=== PATIENT | male | born 1955 | race Hispanic/Latino ===

== ENCOUNTER 2019-11-27 00:48 | Emergency (ER) | payer SELFPAY ==
[~2019-11-27] VITALS: Ht 180.3 cm; Wt 108.9 kg
[2019-11-27] MEDS ORDERED: AZITHROMYCIN 250 MG TAB PO ONE (02:00)
[2019-11-27] MEDS ORDERED: PREDNISONE 20 MG TAB PO ONE (02:00)
[2019-11-27] MEDS ORDERED: CEFTRIAXONE SOD 1 GM VIAL IM ONE (02:00)
[2019-11-27] MEDS ORDERED: METHYLPREDNISOLONE SOD SUCC 125 MG/2ML VIAL IM STA (02:01)
[2019-11-27] MEDS ORDERED: PREDNISONE 20 MG TAB ONE (02:03)
[2019-11-27] MEDS ORDERED: AZITHROMYCIN 250 MG TAB ONE (02:03)
[2019-11-27] MEDS ORDERED: CEFTRIAXONE SOD 1 GM VIAL ONE (02:04)
[2019-11-27] MEDS ORDERED: METHYLPREDNISOLONE SOD SUCC 125 MG/2ML VIAL ONE (02:08)
[2019-11-27] MEDS ORDERED: ONDANSETRON HCL 4 MG ORAL DISINTEGRATING TAB ONE (02:08)
[2019-11-27] MEDS ORDERED: ONDANSETRON HCL 4 MG ORAL DISINTEGRATING TAB PO ONE (02:15)
== END 2019-11-27 02:33 | disposition home or self-care (01) ==
LOC: FSED 01:19
DX: J18.9 Pneumonia, unspecified organism (principal); R50.9 Fever, unspecified; R05 Cough; R06.02 Shortness of breath; R11.2 Nausea with vomiting, unspecified; I10 Essential (primary) hypertension
CPT/HCPCS: 71046; 99283; J0696; J2930; J7512; Q0162